=== PATIENT | male | born 1970 | race Caucasian/White ===

== ENCOUNTER 2016-08-30 09:25 | Emergency (ER) | payer OTHER ==
[2016-08-30] MEDS ORDERED: Ibuprofen TAB* 600 MG PO ONE (10:05)
--- NOTE | 2016-08-30 10:18 | UC ---
UC General HPI - HPI Summary HPI Summary: patient has had fever, bodyaches, chills, cough for 5 days - History of Current Complaint Chief Complaint: UCGeneralIllness Stated Complaint: FLU SXS Time Seen by Provider: 08/30/16 09:56 Hx Obtained From: Patient Onset/Duration: Sudden Onset, Lasting Days Timing: Constant Onset Severity: Moderate Current Severity: Severe Pain Intensity: 8 Associated Signs & Symptoms: Positive: Cough, Dizziness, Fever, Headache, Wheezing - Allergy/Home Medications Allergies/Adverse Reactions: Allergies Allergy/AdvReac Type Severity Reaction Status Date / Time No Known Allergies Allergy Verified 04/21/15 13:42 PMH/Surg Hx/FS Hx/Imm Hx Previously Healthy: Yes - Surgical History Surgical History: Yes Surgery Procedure, Year, and Place: TONSILLECTOMY, EAR TUBES - Family History Known Family History: Positive: Hypertension - Social History Alcohol Use: Occasionally Substance Use Type: None Smoking Status (MU): Heavy Every Day Tobacco Smoker Type: Cigarettes Amount Used/How Often: 1 PPD Have You Smoked in the Last Year: Yes Household Exposure Type: Cigarettes Review of Systems Constitutional: Fever, Chills, Fatigue Skin: Negative Eyes: Negative ENT: Sore Throat, Ear Ache Respiratory: Shortness Of Breath, Cough Cardiovascular: Negative Gastrointestinal: Negative Genitourinary: Negative Motor: Negative Neurovascular: Negative Musculoskeletal: Arthralgia, Myalgia Neurological: Headache Psychological: Negative All Other Systems Reviewed And Are Negative: Yes Physical Exam Triage Information Reviewed: Yes Appearance: Well-Nourished, Ill-Appearing, Pain Distress Vital Signs: Initial Vital Signs Temp 102.7 F 08/30/16 09:52 Pulse 106 08/30/16 09:52 Resp 16 08/30/16 09:52 BP 126/69 08/30/16 09:52 Pulse Ox 96 08/30/16 09:52 Vital Signs Reviewed: Yes Eye Exam: Normal Eyes: Positive: Conjunctiva Inflamed ENT: Positive: Pharyngeal erythema, Nasal drainage, TM bulging, Muffled/hoarse voice Dental Exam: Normal Neck exam: Normal Neck: Positive: Supple, Nontender, No Lymphadenopathy Respiratory Exam: Normal Respiratory: Positive: No respiratory distress, No accessory muscle use, Rhonchi , Wheezing, Inspiration Cardiovascular Exam: Normal Cardiovascular: Positive: RRR, No Murmur, Pulses Normal Abdominal Exam: Normal Abdomen Description: Positive: Nontender, No Organomegaly, Soft Bowel Sounds: Positive: Present Musculoskeletal Exam: Normal Musculoskeletal: Positive: ROM Intact, No Edema Neurological Exam: Normal Neurological: Positive: Alert, Muscle Tone Normal Psychological Exam: Normal Skin Exam: Normal Course/Dx - Course Course Of Treatment: hx obtained, exam performed, medications reviewed, rapid flu swab obtained and was negative, meds prescribed, for cough abx for sinusitis - Differential Dx - Multi-Symptom Provider Diagnoses: fever, sinusitis. cough Discharge - Discharge Plan Condition: Stable Disposition: HOME Prescriptions: Albuterol HFA INHALER* [Ventolin HFA Inhaler*] 2 puff INH Q4H PRN #1 mdi PRN Reason: Cough guaiFENesin/CODIEN 100MG-10MG* [Robitussin AC 100Mg-10Mg*] 10 ml PO BEDTIME PRN #100 ml MDD 10 ml PRN Reason: Cough predniSONE TAB* [Deltasone TAB*] 40 mg PO DAILY #10 tab Patient Education Materials: Fever in Adults (ED) Forms: *Work Release Additional Instructions: take the medications as prescribed. lay low and get some rest, increase fluid intake. Follow up with any increased respiratory symtpoms
[2016-08-30 10:44] VITALS: BP 124/62
== END 2016-08-30 10:47 | disposition home or self-care (01) ==
LOC: UCCORT 09:25
DX: J32.9 Chronic sinusitis, unspecified (principal); R50.9 Fever, unspecified; F17.210 Nicotine dependence, cigarettes, uncomplicated
CPT/HCPCS: 87502; 99212; G0463

== ENCOUNTER 2019-05-16 13:00 | Emergency (ER) | payer BC ==
[2019-05-16 14:11] VITALS: BP 137/79
--- NOTE | 2019-05-16 14:42 | UC ---
Abdominal Pain Male HPI - HPI Summary HPI Summary: Pt presents with c/o sudden onset of nausea and vomiting X 5 days. Pt has decreased appetite - History of Current Complaint Chief Complaint: UCGI Stated Complaint: VOMITTING,NAUSEA,STOMACH BURNING Time Seen by Provider: 05/16/19 14:24 Hx Obtained From: Patient Onset/Duration: Sudden Onset, Lasting Days Timing: Constant Severity Initially: Moderate Severity Currently: Moderate Pain Intensity: 0 Location: Diffuse Radiates: No Character: Colicy, Dull Aggravating Factor(s): Food Alleviating Factor(s): Rest Associated Signs And Symptoms: Positive: Decreased Appetite, Nausea, Vomiting - Risk Factors Testicular Torsion: Negative Cardiac Risk Factors: Negative - Allergies/Home Medications Allergies/Adverse Reactions: Allergies Allergy/AdvReac Type Severity Reaction Status Date / Time No Known Allergies Allergy Verified 05/16/19 14:06 PMH/Surg Hx/FS Hx/Imm Hx Previously Healthy: Yes - Surgical History Surgical History: Yes Surgery Procedure, Year, and Place: T&A, [address] - Family History Known Family History: Positive: Hypertension - Social History Occupation: Employed Full-time Lives: With Family Alcohol Use: Occasionally Substance Use Type: None Smoking Status (MU): Heavy Every Day Tobacco Smoker Type: Cigarettes Amount Used/How Often: > 1 PPD Length of Time of Smoking/Using Tobacco: Since Age 14 Have You Smoked in the Last Year: Yes Household Exposure Type: Cigarettes Review of Systems All Other Systems Reviewed And Are Negative: Yes Constitutional: Positive: Fatigue Skin: Positive: Negative Eyes: Positive: Negative ENT: Positive: Negative Respiratory: Positive: Negative Cardiovascular: Positive: Negative Gastrointestinal: Positive: Vomiting, Nausea Genitourinary: Positive: Negative Motor: Positive: Negative Neurovascular: Positive: Negative Musculoskeletal: Positive: Negative Neurological: Positive: Negative Psychological: Positive: Negative Is Patient Immunocompromised?: No Physical Exam Triage Information Reviewed: Yes Appearance: Ill-Appearing Vital Signs: Initial Vital Signs Temp 98.3 F 05/16/19 14:03 Pulse 94 05/16/19 14:03 Resp 18 05/16/19 14:03 BP 137/79 05/16/19 14:03 Pulse Ox 99 05/16/19 14:03 Vital Signs Reviewed: Yes Eye Exam: Normal ENT Exam: Normal Dental Exam: Normal Neck exam: Normal Respiratory Exam: Normal Cardiovascular Exam: Normal Abdomen Description: Positive: Nontender Musculoskeletal Exam: Normal Neurological Exam: Normal Psychological Exam: Normal Skin Exam: Normal Abd Pain Male Course/Dx - Differential Dx/Clinical Impression Differential Diagnosis/HQI/PQRI: Other - gastroenteritis Provider Diagnosis: Nausea and vomiting, Decreased appetite Discharge ED - Sign-Out/Discharge Documenting (check all that apply): Patient Departure All imaging exams completed and their final reports reviewed: No Studies - Discharge Plan Condition: Stable Disposition: HOME Prescriptions: Ondansetron HCl [Zofran] 8 mg PO Q8H PRN #21 tablet PRN Reason: Nausea Patient Education Materials: Acute Nausea and Vomiting (ED) Referrals: [facility] – [place] PHYSICIAN REFERRAL [Outside] - If Needed No Primary Care Phys,NOPCP [Primary Care Provider] - - Billing Disposition and Condition Condition: STABLE Disposition: Home - Attestation Statements Provider Attestation: Per institutional requirements, I have reviewed the chart, however, I was not consulted specifically or made aware of this patient by the midlevel provider. I did not personally evaluate, interact with , or disposition this patient.
== END 2019-05-16 14:50 | disposition home or self-care (01) ==
LOC: UCCORT 13:00
DX: R11.2 Nausea with vomiting, unspecified (principal); F17.210 Nicotine dependence, cigarettes, uncomplicated; R63.0 Anorexia; R53.83 Other fatigue
CPT/HCPCS: 99212; G0463